=== PATIENT | female | born 1960 | race American Indian/Alaskan Native ===

== ENCOUNTER 2017-05-13 18:40 | Emergency (ER) | payer OTHER ==
[~2017-05-13] VITALS: Ht 157.5 cm; Wt 87.1 kg
[~2017-05-13 18:40] MED LIST: ASPIRIN EC81 MG PO; CEPHALEXIN500 MG PO; DOLOPHINE HCL10 MG PO; INDOMETHACIN50 MG PO; KEFLEX500 MG PO; KEPPRA500 MG PO; LISINOPRIL10 MG PO; METHADONE HCL10 MG PO; NASACORT10.8 ML NAS; OMEPRAZOLE20 MG PO; PERCOCET 5-3251 EACH PO; PRILOSEC20 MG PO; PROMETHAZINE HC25 M1 PO; PROPRANOLOL HCL20 MG PO; PROTONIX40 MG PO; SENOKOT-S TABL1 EACH PO
[2017-05-13] MEDS ORDERED: GLUCOPHAGE500 MG PO (18:51)
[2017-05-13] MEDS ORDERED: PROAIR RESPICL90 MCG (18:52)
[2017-05-13] MEDS ORDERED: CYCLOBENZAPRINE10 MG PO ×2 (20:02→20:06)
== END 2017-05-13 20:24 | disposition home or self-care (01) ==
LOC: ED 18:40
DX: M54.5 Low back pain (principal); F17.200 Nicotine dependence, unspecified, uncomplicated; Z79.899 Other long term (current) drug therapy
CPT/HCPCS: 96372; 99283; J1885

== ENCOUNTER 2021-12-24 11:47 | Emergency (ER) | payer MEDICARE, OTHER ==
[~2021-12-24] VITALS: Ht 157.5 cm; Wt 87.1 kg
[~2021-12-24 11:47] MED LIST changes: +CYCLOBENZAPRINE10 MG PO; +GLUCOPHAGE500 MG PO; +PROAIR RESPICL90 MCG
[2021-12-24] MEDS ORDERED: BYDUREON B2 MG/0.85 SQ (13:33)
[2021-12-24] MEDS ORDERED: AMITRIPTYLINE H10 MG PO (13:34)
[2021-12-24] MEDS ORDERED: NOVOLOG MI100 UNIT/1 SUB-Q (13:34)
[2021-12-24] MEDS ORDERED: IBUPROFEN800 MG PO (13:34)
[2021-12-24] MEDS ORDERED: LISINOPRIL20 MG PO (13:34)
[2021-12-24] MEDS ORDERED: OXYCODONE-ACET1 EAC1 PO (13:34)
[2021-12-24] MEDS ORDERED: PREDNISONE20 MG PO (13:49)
--- NOTE | 2021-12-25 11:43 | EKG ---
[facility] [address] [facility] [place] [address] Signed Normal sinus rhythm Normal ECG When compared with ECG of 03-NOV-2016 20:38, No significant change was found Confirmed by GERBER GOVEA MD ([id number]) on 12/25/2021 11:43:42 AM Electronically Signed By: GERBER GOVEA MD 12/25/21 1143 PATIENT NAME: BRENDA RICHARDSON Electrocardiogram DATE OF : 58 PHYSICIAN: GERBER GOVEA MD REPORT #: [id number] REPORT IS CONFIDENTIAL AND NOT TO BE RELEASED WITHOUT AUTHORIZATION
== END 2021-12-24 14:03 | disposition home or self-care (01) ==
LOC: ED 11:47
DX: J44.1 Chronic obstructive pulmonary disease with (acute) exacerbation (principal); G43.909 Migraine, unspecified, not intractable, without status migrainosus; R73.03 Prediabetes; M19.90 Unspecified osteoarthritis, unspecified site; F17.200 Nicotine dependence, unspecified, uncomplicated; Z79.899 Other long term (current) drug therapy; Z79.891 Long term (current) use of opiate analgesic; Z79.4 Long term (current) use of insulin
CPT/HCPCS: 36415; 71045; 80053; 83880; 84484; 85025; 93005; 93010; 94640; 96374; 99285-25; J2930

== ENCOUNTER 2022-11-10 07:07 | Day surgery (SDC) | payer MEDICARE, OTHER ==
--- NOTE | 2022-11-05 08:39 | NUR ---
PER PATIENT SHE WILL WANT ANY TISSUE AND OTHER ITEMS THAT ARE REMOVED FROM HER BODY.SHE UNDERSTANDS THAT ALL ITEMS WILL GO TO PATHO, BUT PLEASE MAKE THE PATH SHEET THAT ITEMS WILL BE RETURNED TO THE PATIENT.
[~2022-11-10] VITALS: Ht 157.5 cm; Wt 90.9 kg
[~2022-11-10 07:07] MED LIST changes: +AMITRIPTYLINE H10 MG PO; +BAYER CHEWABLE81 MG PO; +BYDUREON B2 MG/0.85; +BYDUREON B2 MG/0.85 SQ; +CRESTOR20 MG PO; +DULCOLAX STOOL100 M1 PO; +IBUPROFEN800 MG PO; +JARDIANCE25 MG PO; +LISINOPRIL20 MG PO; +MULTI VITAMIN1 EACH PO; +NOVOLIN 70100 UNIT/2 SQ; +NOVOLOG MI100 UNIT/1 SUB-Q; +OXYCODONE-ACET1 EAC1 PO; +PREDNISONE20 MG PO; +TYLENOL325 MG PO; +ZYRTEC10 M3 PO; +[UNRECOGNIZED DRUG - OTHER]
[2022-11-10] MEDS ORDERED: OXYCODONE HCL5 MG PO (08:01)
--- NOTE | 2022-11-10 08:32 | NUR ---
0750: YG FROM NUCLEAR MED INTO SEE PT, PROVIDES 4% LIDOCAINE AND OPSITE TO PLACE ON RIGHT BREAST. PLANS TO RETURN AT 0830 TO TAKE PT TO IMAGING.
--- NOTE | 2022-11-10 11:15 | NUR ---
1115: PT HOT, RUSTY STUER PLACED ON COOL. PT UP TO BATHROOM, STEADY AMBULATION. HEPARIN IN RLQ ORDERED AND SCD'S IN PLACE. ELKIN ANGEL IN ROOM AT THIS TIME TO TAKE PT TO OR.
--- NOTE | 2022-11-10 13:22 | NUR ---
11/10/22 1322 Misty Lanza 1309-PATIENT ARRIVED TO PACU ON 2L NC RR EVEN PATIENT DROWSY MOANING. EYES OPEN. IVF INFUSING. ST HR 120. 2 SITES TO RIGHT BREAST CDI. 1316-PATIENT MOANING "IT HURTS" RATES "10" HOB ELEVATED. PATIENT TOUCHING RIGHT BREAST. NEW ORDER FOR IV TYLENOL 1 GRAM FROM [facility]. IV TYLENOL INFUSING.
[2022-11-10] MEDS ORDERED: HYDROMORPHONE HC4 MG PO (13:36)
[2022-11-10] MEDS ORDERED: NICOTINE1 EAC2 TD (13:36)
[2022-11-10] MEDS ORDERED: ACETAMINOPHEN500 MG PO (13:38)
--- NOTE | 2022-11-10 14:26 | NUR ---
1400: PT BACK TO DS TREATMENT ROOM FROM PACU AWAKE AND ALERT. PT MOANING IN PAIN ON ARRIVAL, RATES PAIN 10/10 IN RIGHT BREAST. ICED WATER AT BEDSIDE. 1415: VERBAL PAIN MED ORDERS RECEIVED FROM DR. DICKSON, SEE EMAR. PT ASKS IF BREASTS COULD BE WRAPPED WITH DELMAR BANDAGE, DR. DICKSON AGREES. PT ALSO ASKS IF ICE WOULD BE HELPFUL FOR AT HOME. PT STATES PAIN IN RIGHT BREAST IN "RADIATING" AND "CONSTANT." 1420: DELMAR WRAP IN PLACE AND PT STATES THAT IT FEELS A LITTLE BETTER. PAIN RX GIVEN AND PT HAS PERSONAL CELL PHONE TO CALL CHILDREN. CALL LIGHT WITHIN REACH.
--- NOTE | 2022-11-10 15:05 | NUR ---
1500: PT RESTING WITH EYES CLOSED, RESP EVEN AND UNLABORED. VS DEFERRED AT THIS TIME, CALL LIGHT WITHIN REACH.
--- NOTE | 2022-11-10 15:46 | NUR ---
1538: PT CONT TO REST WITH EYES CLOSED, AROUSES WITH VERBAL STIMULATION BUT DOES NOT OPEN EYES. PT STATES PAIN IS "BETTER" WHEN ASKED, CONT PULSE OXIMETER LEFT IN PLACE WHILE PT RESTS. CALL LIGHT WITHIN REACH.
--- NOTE | 2022-11-10 17:17 | NUR ---
[id number]: PT AWAKE IN ROOM WINCING FACE, RATES PAIN 7-8/10 AND WOULD LIKE SOMETHING FOR PAIN, SEE EMAR. PT UP TO BATHROOM WITH RN ASSIST AND STEADY GAIT, ABLE TO VOID 750 MLS GREENISH-BLUE URINE WITH NO PROBLEMS. DELMAR BANDAGE REWRAPPED AROUND BREASTS PER PT REQUEST. NEW GOWN PROVIDED, PT STATES PERSPIRING DUE TO PAIN. PT CALLS FAMILY AT THIS TIME TO COME TO HOSPITAL FOR SAFE RIDE HOME. SANDWICH AND CHIPS ORDERED FOR PT, CALL LIGHT WITHIN REACH. 1715: PT FAMILY ARRIVES, AT BEDSIDE. FOOD DELIVERED AND COFFEE PROVIDED PER PT REQUEST. WILL PLAN FOR PT TO GET DRESSED WHEN DONE EATING. PT STATES PAIN IS "WAY BETTER" AND THAT SHE CAN ONLY PERIODICALLY FEEL THE PAIN IN HER RIGHT BREAST.
--- NOTE | 2022-11-10 17:55 | NUR ---
1745: PT TOLERATES FOOD WITH NO C/O NAUSEA. PT RATES PAIN 4/10 IN RIGHT BREAST AND STATES, "THIS IS THE BEST I HAVE FELT IN A LONG TIME." DC INSTRUCTIONS PRESENTED VERBALLY AND WRITTEN AND PT PROVIDED PAIN PRESCRIPTION. PT DRESSES SELF AND DC FROM DS TREATMENT ROOM TO HOME WITH FAMILY.
--- NOTE | 2022-11-14 14:06 | OR ---
[facility] [address], [place] [address] Signed DATE OF OPERATION: 11/10/2022 SURGEON: Luis Antonio Dickson MD PREOPERATIVE DIAGNOSES: 1. Right lateral infiltrating ductal breast carcinoma with associated DCIS (ER-ND positive, HER-2 negative). 2. Obesity. 3. Chronic pain syndrome. 4. Smoker. POSTOPERATIVE DIAGNOSES: 1. Right lateral infiltrating ductal breast carcinoma with associated DCIS (ER-ND positive, Her2 negative). 2. Obesity. 3. Chronic pain syndrome. 4. Smoker. PROCEDURES: 1. Injection of methylene blue dye for sentinel lymph node identification. 2. Right deep axillary sentinel lymph node biopsies. 3. Right partial mastectomy (specimen size 9 cm x 6 cm x 4 cm). 4. Oncoplastic closure including excision of skin and additional breast tissue and breast pedicle advancement flap. ANESTHESIA: General, LMA; Paco Oshea CRNA and local 10 mL of 0.25% Marcaine with epinephrine. INDICATIONS FOR THE PROCEDURE: This obese 62-year-old [place] woman is a patient of Dr. Dylan Byrd from [facility]. She found a palpable mass in the right lateral breast and underwent a mammogram showing a BI-RADS category 5 lesion. Pathology confirmed an invasive ductal carcinoma, 12 mm in size with associated ductal carcinoma in situ with comedo necrosis. Receptors were ER-ND positive, HER-2/robinson negative. Notably, she underwent a previous right breast biopsy in 2017 showing fibrocystic change of the breast. She has been advised of various options of management of her problem, and at this point agrees to partial mastectomy, sentinel lymph node biopsy and postoperative radiation therapy for breast conservation. The risk of operation including but not limited to bleeding, infection, cosmetic deformity, and so forth were all reviewed in great detail. Electronically Signed By: LUIS ANTONIO DICKSON MD 11/14/22 1406 PATIENT NAME: BRENDA RICHARDSON OPERATIVE REPORT DATE OF : 58 REPORT #: [id number] PHYSICIAN: LUIS ANTONIO DICKSON MD PCP: MARIA LUISA MCELROY REPORT IS CONFIDENTIAL AND NOT TO BE RELEASED WITHOUT AUTHORIZATION [facility] [address], [place] [address] Signed She understands and wished to proceed. FINDINGS: Good uptake of axillary sentinel lymph node was noted by radionuclide and by dye. It was a subpectoral lymph node in the mid to upper portion of the axilla. It was relatively large about a 1.5 cm to 2 cm. There were associated smaller lymph nodes associated with them, which were not particularly sentinel nodes specifically and without dye and without radionuclide uptake, but they were sent, nevertheless. Additional interrogation of the right axilla showed no additional blue lymph node or hot lymph nodes. As regard to the primary lesion, the area in question was rather diffusely and vaguely enlarged. Wide resection was undertaken to incorporate all the abnormal tissue extending down to the pectoralis. The specimen was marked with a long stitch lateral, short stitch superior and a double stitch in the deep margin. The most problematic lesion was deep and was incorporated with a negative margin clinically, which was pectoral fascia. The other margins from what can be told grossly clinically negative. The defect within the breast in the lateral aspect was significant enough that parenchymal advancement from a lateral to medial direction was required with layered closure. Redundant skin was excised to provide for more optimal oncoplastic closure. DESCRIPTION OF PROCEDURE: The patient was brought to the operating room, given general LMA type anesthetic. Preoperative antibiotic Ancef was given. Sequential compression device stockings used and heparin subcutaneously administered. A 1.5 mL of methylene blue dye was injected in the subepithelial space and the periareolar margin on the right, noting arborization of lymphatics. Preparation was then undertaken with Hibiclens based solution including all of the breast, chest wall, right axilla, and upper right arm. Sterile draping was undertaken. Interrogation of the axilla with the C-Trak gamma probe was undertaken showing an area of maximal uptake in the upper medial axilla. A transverse incision was made there and dissection carried through the dermis and the parenchyma of the soft tissue with electrocautery down to the lateral aspect of the right pectoral muscle. Additional use of the C-Trak probe showed the hot area to be beneath the pectoralis. The pectoralis was elevated and using blunt dissection with a tonsil clamp, ultimately a bright blue lymph node with avid radionuclide uptake was identified. The substance was grasped with an Allis clamp, elevated, and electrocautery used to dissect it more fully free. There is at least one lymph node associated with the sentinel node, which independently was found to have no dye uptake nor radionuclide. Additional interrogation of the axilla was undertaken, and although there was no blue dye uptake nor radionuclide avidity, two other small lymph Electronically Signed By: LUIS ANTONIO DICKSON MD 11/14/22 1406 PATIENT NAME: BRENDA RICHARDSON OPERATIVE REPORT DATE OF : 58 REPORT #: [id number] PHYSICIAN: LUIS ANTONIO DICKSON MD PCP: MARIA LUISA MCELROY REPORT IS CONFIDENTIAL AND NOT TO BE RELEASED WITHOUT AUTHORIZATION [address] [address] Signed nodes near the sentinel node were identified and excised. The wound was then packed with gauze, though hemostasis was already quite good. Palpable abnormality was in the lateral aspect of the right breast, not upper, not lower particularly. An incision was made directly over the site approximately 6 cm from the areolar margin. Dissection was carried through the dermis with electrocautery. Wide resection was undertaken with electrocautery maintaining a clinically negative margin. Further dissection showed that the fibrotic and dominant soft tissue was more medial and further dissection was taken nearly to the areolar margin ultimately. Wide resection was taken down to normal parenchyma and taken deeply to the pectoralis fascia including in its excision. Prior to explantation of the specimen from its in situ position, lateral and superior margin were identified with sutures. Once the specimen was completely removed, the deep margin was palpated detecting a very firm, likely invasive malignancy, but with a bit of pectoral fascia serving as a barrier to it and unlikely to have a positive margin. This area was marked with two stitches and considered a "deep" margin. Irrigation was undertaken with sterile water. Hemostasis was assured with electrocautery. The defect in the breast was sizable, 9 cm x 6 cm x 4 cm. Parenchymal advancement was deemed advisable. Medial and lateral remaining breast pedicles were mobilized and was closed in layers with interrupted 2-0 Vicryl suture. This allowed for considerable amount of redundant skin, which was excised on the medial aspect concordant to the defect size. Deep dermal reapproximation was undertaken with interrupted 2-0 Vicryl and skin closed with running subcuticular 3-0 Vicryl providing a good oncoplastic closure. The axillary wound was reinspected and found to be hemostatic. Interrogation of the axilla once again with the C-Trak probe showed no sign of radionuclide activity. That wound was closed in layers with interrupted 2-0 Vicryl and running subcuticular 3-0 Vicryl for the skin. Steri-Strips were applied to both sites as were Acticoat dressings. The patient was ultimately extubated and taken to the recovery room in good condition, having suffered no complication. Sponge, needle, and instrument counts was correct x3. MD LUDIN Bloom/KYLEL Electronically Signed By: LUIS ANTONIO DICKSON MD 11/14/22 1406 PATIENT NAME: BRENDA RICHARDSON OPERATIVE REPORT DATE OF : 58 REPORT #: [id number] PHYSICIAN: LUIS ANTONIO DICKSON MD PCP: MARIA LUISA MCELROY REPORT IS CONFIDENTIAL AND NOT TO BE RELEASED WITHOUT AUTHORIZATION [address] [address] Signed /[id number] cc: MD Maria Luisa Lopez Copies: DYLAN BYRD MD, ELIZABETH ~ Electronically Signed By: LUIS ANTONIO DICKSON MD 11/14/22 1406 PATIENT NAME: BRENDA RICHARDSON OPERATIVE REPORT DATE OF : 58 REPORT #: [id number] PHYSICIAN: LUIS ANTONIO DICKSON MD PCP: MARIA LUISA MCELROY REPORT IS CONFIDENTIAL AND NOT TO BE RELEASED WITHOUT AUTHORIZATION
== END 2022-11-10 17:52 | disposition home or self-care (01) ==
LOC: DS 07:07 → EDSTATUS 08:15 → DS 08:15 → NUC 08:30 → DS 17:52
PROVIDERS: ATTEND Surgery
PROC: 0HBT0ZZ Excision of Right Breast, Open Approach (ICD-10-PCS; principal; 2022-11-10 09:05)
PROC: 07B50ZZ Excision of Right Axillary Lymphatic, Open Approach (ICD-10-PCS; 2022-11-10 09:05)
DX: C50.911 Malignant neoplasm of unspecified site of right female breast (principal); C77.3 Secondary and unspecified malignant neoplasm of axilla and upper limb lymph nodes; E11.9 Type 2 diabetes mellitus without complications; Z17.0 Estrogen receptor positive status [ER+]; Z72.0 Tobacco use
CPT/HCPCS: 00400; 78195; 88304; 88307; 88341; 88342; A9541; J0131; J0690; J1100; J1170; J1644; J1885; J2001; J2405; J2704; J3010; J7121; Q9968